=== PATIENT | female | born 1945 | race Caucasian/White ===

== ENCOUNTER 2024-09-04 13:52 | Inpatient (IN) | payer MEDICARE, OTHER ==
[~2024-09-04] VITALS: Ht 162.6 cm; Wt 57.6 kg
[2024-09-04 14:39] LABS: BASOPHILS # (AUTO) 0.1 K/uL (0.0-0.2); BASOPHILS % (AUTO) 1.1 % (0.0-2.0); EOSINOPHILS # (AUTO) 0.2 K/uL (0.0-0.7); HEMATOCRIT 38 % (33-45); HEMOGLOBIN 12.7 g/dL (11.5-14.8); LYMPHOCYTES # (AUTO) 1.1 K/uL (0.8-4.8); MEAN CORPUSCULAR HEMOGLOBIN 27 PG (26.0-33.0); MEAN CORPUSCULAR HGB CONC 33 g/dl (31.0-36.0); MEAN CORPUSCULAR VOLUME 82 fL (82-100); MONOCYTES # (AUTO) 0.4 K/uL (0.1-1.30); MONOCYTES % (AUTO) 7.8 % (2.0-12.0); NEUTROPHILS # (AUTO) 3.6 K/uL (1.8-8.9); NEUTROPHILS % (AUTO) 67.1 % (43.0-81.0); PLATELET COUNT (AUTO) 202 K/uL (150-450); RED BLOOD CELL COUNT(AUTO) 4.67 MIL/uL (4.0-5.2); RED CELL DISTRIBUTION WIDTH 14.4 % (11.5-15.0); WHITE BLOOD COUNT (AUTO) 5.3 K/uL (4.3-11.0)
[2024-09-04 14:46] LABS: CALCIUM, SERUM 9.4 mg/dL (8.5-10.1); CARBON DIOXIDE 26 mmol/L (21-32); CHLORIDE 100 mmol/L (98-107); CREATININE 0.9 mg/dL (0.6-1.3); GLUCOSE 116 mg/dL (74-106); POTASSIUM 4.4 mmol/L (3.5-5.1); SODIUM SERUM 139 mmol/L (136-145); UREA NITROGEN, BLOOD 18 mg/dL (7-18)
[2024-09-04 14:51] LABS: ALANINE AMINOTRANSFERASE < 6 U/L (12-78); ALBUMIN 4.2 g/dL (3.4-5.0); ALKALINE PHOSPHATASE 47 U/L (46-116); ASPARTATE AMINOTRANSFERASE 27 U/L (15-37); BILIRUBIN,DIRECT 0.1 mg/dL (0.0-0.2); BILIRUBIN,TOTAL 0.6 mg/dL (0.2-1.0); TOTAL PROTEIN, SERUM 7.9 g/dL (6.4-8.2)
[2024-09-04 14:54] LABS: INR 1.07 (0.91-1.10); PARTIAL THROMBOPLASTIN TIME 25.2 SEC (24.3-34.3); PROTHROMBIN TIME 11.3 SECS (9.2-11.1)
[2024-09-04 15:21] LABS: APPEARANCE,URINE CLEAR (CLEAR); BILIRUBIN,URINE NEGATIVE (NEGATIVE); BLOOD, URINE NEGATIVE Ery/uL (NEGATIVE); COLOR,URINE YELLOW (YELLOW); KETONES,URINE 1+ mg/dL (NEGATIVE); LEUKOCYTE ESTERASE ,URINE 2+ (NEGATIVE); NITRITE, URINE NEGATIVE (NEGATIVE); PROTEIN,URINE TRACE mg/dl (NEGATIVE); UGLUCOSE NEGATIVE (NEGATIVE); UROBILINOGEN,URINE 0.2 EU/dL (0.2)
[2024-09-04] MEDS ORDERED: LORAZEPAM 0.5 MG TABLET ONE (15:29)
[2024-09-04] MEDS ORDERED: ASPIRIN 81 MG TAB.CHEW ONE (15:30)
[2024-09-04] MEDS ORDERED: AMOX/CLAVULANATE 875 MG TABLET ONE (15:30)
[2024-09-04] MEDS: LORAZEPAM 1 MG TABLET PO ONE (15:38)
[2024-09-04] MEDS: AMOX/CLAVULANATE 875 MG TABLET PO ONE (15:38)
[2024-09-04] MEDS: ASPIRIN 81 MG TAB.CHEW PO ONE (15:38)
[2024-09-04] MEDS ORDERED: LINA1TAB7 PO (16:12)
[2024-09-04] MEDS ORDERED: METO-358 PO (16:12)
[2024-09-04] MEDS ORDERED: ESCI10TA PO (16:12)
[2024-09-04] MEDS ORDERED: CLON0.5T4 PO (16:12)
[2024-09-04] MEDS ORDERED: NIFE90TA38 PO (16:12)
[2024-09-04] MEDS ORDERED: IOHEXOL-350 100 ML VIAL IV ONE (16:15)
[2024-09-04] MEDS ORDERED: CT SWABBABLE VALVE TRANS SET 1 EA INFUS.SET MC ONE (16:15)
[2024-09-04] MEDS ORDERED: IV NS 0.9% 250 ML IV ONE (16:15)
[2024-09-04 16:38] LABS: ADD URINE CULTURE YES; BACTERIA,URINE Few /HPF (None Seen); RBC,URINE 0-2 /HPF (0-2); SQUAMOUS EPITHELIAL CELL,UR Rare /HPF (None Seen); URIC ACID CRYSTALS,URINE Many /HPF (None Seen)
[2024-09-04] MEDS ORDERED: DEXTROSE 50%-WATER 50 ML DISP.SYRIN IV PRN (18:00)
[2024-09-04] MEDS ORDERED: ONDANSETRON HCL/PF 4 MG/2 ML VIAL IVP PRN (18:00)
[2024-09-04] MEDS ORDERED: ACETAMINOPHEN 325 MG TABLET PO PRN (18:00)
[2024-09-04] MEDS ORDERED: MECLIZINE HCL 25 MG TABLET PO PRN (18:30)
[2024-09-04 18:32] VITALS: O2SAT 97
[2024-09-04] MEDS: ENOXAPARIN SODIUM 40 MG/0.4 ML DISP.SYRIN SQ SCH (19:03)
[2024-09-04] MEDS: AMOX/CLAVULANATE 875 MG TABLET PO SCH (20:03)
[2024-09-04 20:21] VITALS: BP 126/66; TEMP 97.5; O2SAT 96
[2024-09-04] MEDS: BLOOD SUGAR DIAGNOSTIC 1 EACH STRIP IN SCH (21:20)
[2024-09-04] MEDS: INSULIN REGULAR, HUMAN 100 UNIT/ML 3 ML VIAL SQ PRN (21:21)
[2024-09-04] MEDS: Magnesium 1GM/D5W 100ML PREMIX 100 ML IV SCH (22:56)
[2024-09-05 00:19] VITALS: BP 154/61; TEMP 97.3; O2SAT 97
[2024-09-05 08:00] VITALS: BP 144/75; TEMP 98.4; O2SAT 98
[2024-09-05] MEDS: ASPIRIN 81 MG TAB.CHEW PO SCH (08:03)
[2024-09-05] MEDS: PANTOPRAZOLE 40 MG TABLET.DR PO SCH (08:03)
[2024-09-05 08:29] LABS: BASOPHILS % (AUTO) 0.9 % (0.0-2.0); EOSINOPHILS # (AUTO) 0.3 K/uL (0.0-0.7); HEMATOCRIT 37 % (33-45); HEMOGLOBIN 12.6 g/dL (11.5-14.8); LYMPHOCYTES # (AUTO) 1.1 K/uL (0.8-4.8); LYMPHOCYTES % (AUTO) 25.7 % (20.0-44.0); MEAN CORPUSCULAR HEMOGLOBIN 28 PG (26.0-33.0); MEAN CORPUSCULAR HGB CONC 34 g/dl (31.0-36.0); MEAN CORPUSCULAR VOLUME 82 fL (82-100); MONOCYTES # (AUTO) 0.4 K/uL (0.1-1.30); MONOCYTES % (AUTO) 9.1 % (2.0-12.0); NEUTROPHILS # (AUTO) 2.5 K/uL (1.8-8.9); NEUTROPHILS % (AUTO) 56.3 % (43.0-81.0); PLATELET COUNT (AUTO) 169 K/uL (150-450); RED BLOOD CELL COUNT(AUTO) 4.55 MIL/uL (4.0-5.2); RED CELL DISTRIBUTION WIDTH 13.9 % (11.5-15.0); WHITE BLOOD COUNT (AUTO) 4.4 K/uL (4.3-11.0)
[2024-09-05] MEDS: diphenhydrAMINE HCL 50 MG CAPSULE PO ONE (10:05)
[2024-09-05 10:32] LABS: CALCIUM, SERUM 9.7 mg/dL (8.5-10.1); CREATININE 0.9 mg/dL (0.6-1.3); PHOSPHORUS 3.1 mg/dL (2.5-4.9); POTASSIUM 3.6 mmol/L (3.5-5.1)
[2024-09-05] MEDS: methylPREDNISolone SOD SUCC 1,000 MG in IV NS 0.9% 250 ML IV ONE (10:32)
[2024-09-05] MEDS ORDERED: clonazePAM 0.5 MG TABLET PO PRN (11:30)
[2024-09-05] MEDS ORDERED: IOHEXOL-350 100 ML VIAL IV ONE (11:44)
[2024-09-05] MEDS ORDERED: CT SWABBABLE VALVE TRANS SET 1 EA INFUS.SET MC ONE (11:44)
[2024-09-05] MEDS ORDERED: IV NS 0.9% 250 ML IV ONE (11:44)
[2024-09-05] MEDS: METOPROLOL TARTRATE INJ 5 MG/5 ML AMPUL IVP PRN (12:11)
[2024-09-05 12:30] VITALS: BP 163/58
[2024-09-05] MEDS: NITROGLYCERIN 0.4 MG/TAB BOTTLE SL ONE (12:30)
[2024-09-05] MEDS ORDERED: ASPI-1420 PO (15:00)
[2024-09-05] MEDS ORDERED: ATOR80TA PO (15:00)
[2024-09-05] MEDS ORDERED: AMOX-430 PO (15:06)
[2024-09-05 16:36] LABS: THYROID STIMULATING HORMONE 1.9 uIU/mL (0.358-3.74)
[2024-09-06] MEDS ORDERED: METOPROLOL SUCCINATE 50 MG TAB.SR.24H PO SCH (09:00)
[2024-09-06] MEDS ORDERED: NIFEdipine XL (30MG) 30 MG TAB PO SCH (09:00)
== END 2024-09-05 15:45 | disposition home health service (06) | DRG 152 ==
LOC: EDBD 13:52 → ER 13:52 → TELE 16:48
PROVIDERS: ADMIT Nurse Practitioner Family; ATTEND Nurse Practitioner Family
DX: J01.40 Acute pansinusitis, unspecified (principal); I21.A1 Myocardial infarction type 2; I10 Essential (primary) hypertension; F03.90 Unspecified dementia, unspecified severity, without behavioral disturbance, psychotic disturbance, mood disturbance, and anxiety; E11.9 Type 2 diabetes mellitus without complications; Z96.651 Presence of right artificial knee joint; I25.10 Atherosclerotic heart disease of native coronary artery without angina pectoris; Z79.84 Long term (current) use of oral hypoglycemic drugs; Z79.899 Other long term (current) drug therapy; E83.42 Hypomagnesemia; R94.31 Abnormal electrocardiogram [ECG] [EKG]; M19.90 Unspecified osteoarthritis, unspecified site
CPT/HCPCS: 36415; 70450-TC; 70496-TC; 70498-TC; 71045-TC; 75574; 80048-TC; 80061-TC; 80076-TC; 81001; 82962-TC; 83735-TC; 84100-TC; 84443-TC; 84484-TC; 85025-TC; 85730-TC; 87086-TC; 93307-TC; A4223; G0378; J1650; J1815; J2919; J3475; J3490; J7050; Q0163; Q9967